=== PATIENT | female | born 1990 | race Caucasian/White ===

== ENCOUNTER 2016-10-15 22:59 | Emergency (ER) | payer BC ==
[~2016-10-15] VITALS: Ht 167.6 cm; Wt 54.5 kg
[2016-10-15] MEDS ORDERED: [UNRECOGNIZED DRUG - OTHER] PO ONE (23:35)
[2016-10-15] MEDS ORDERED: LEVOFLOXACIN PO ONE (23:35)
[2016-10-15] MEDS ORDERED: NITR100C3 PO (23:40)
[2016-10-15] MEDS ORDERED: NITROFURANTOIN 100 MG (MACROBID) CAPSULE PO ONE (23:40)
[2016-10-15 23:44] LABS: BILIRUBIN,URINE Negative (Negative); GLUCOSE, URINE (UA) Negative (Negative); LEUKOCYTE ESTERASE ,URINE 1+ (Negative); UROBILINOGEN,URINE 0.2 mg/dL (0.2-1.0)
[2016-10-15 23:51] LABS: CLARITY,URINE Slightly Cloudy; COLOR,URINE Light Yellow
[2016-10-15 23:54] LABS: RBC,URINE 0-2 /HPF; URINE CENTRIFUGED VOLUME 12 mL
[2016-10-16 00:39] VITALS: BP 107/66
== END 2016-10-16 00:10 | disposition home or self-care (01) ==
LOC: ED 23:01
DX: N30.01 Acute cystitis with hematuria (principal)
CPT/HCPCS: 81003; 81015; 87077; 87088; 87186; 99282; 99283